=== PATIENT | female | born 2000 | race Caucasian/White ===

== ENCOUNTER 2022-08-28 17:18 | Emergency (ER) | payer BC ==
[~2022-08-28] VITALS: Ht 160 cm; Wt 52.3 kg
[2022-08-28 17:27] VITALS: BP 125/91
[2022-08-28] MEDS ORDERED: ketorolac trometh. 30mg/ml inj. IV STA (18:34)
[2022-08-28] MEDS ORDERED: ondansetron 4mg rapidly disintigrating tab PO STA (18:34)
[2022-08-28] MEDS ORDERED: ONDA4TAB12 PO (18:42)
[2022-08-28] MEDS ORDERED: IBUP-860 PO (18:42)
== END 2022-08-28 18:56 | disposition home or self-care (01) ==
LOC: ER 17:19
DX: S06.0X0A Concussion without loss of consciousness, initial encounter (principal); X58.XXXA Exposure to other specified factors, initial encounter; Y93.89 Activity, other specified; Y92.89 Other specified places as the place of occurrence of the external cause; Y99.8 Other external cause status
CPT/HCPCS: 96374; 99283; J1885

== ENCOUNTER 2024-06-18 19:05 | Emergency (ER) | payer BC ==
[~2024-06-18] VITALS: Ht 160 cm; Wt 56.8 kg
[~2024-06-18 19:05] MED LIST: IBUP-860 PO; ONDA-243 PO
[2024-06-18 19:24] VITALS: BP 119/68; PULSE 93; RESP 18; TEMP 98; O2SAT 100
== END 2024-06-18 22:25 | disposition left against medical advice (07) ==
LOC: ER 19:05
DX: S09.8XXA Other specified injuries of head, initial encounter (principal); Z53.21 Procedure and treatment not carried out due to patient leaving prior to being seen by health care provider; W22.8XXA Striking against or struck by other objects, initial encounter; Y93.89 Activity, other specified; Y92.89 Other specified places as the place of occurrence of the external cause; Y99.8 Other external cause status